=== PATIENT | female | born 1995 | race Caucasian/White ===

== ENCOUNTER 2019-12-18 17:02 | Emergency (ER) | payer OTHER, SELFPAY ==
[2019-12-18 17:48] VITALS: BP 123/76; PULSE 97; RESP 16; TEMP 37.2; O2SAT 100
[2019-12-18 17:55] LABS: Glucose Point of Care 88 (65-105)
--- NOTE | 2019-12-18 19:10 | ED.WOUNDLAC ---
HPI - Wound/Laceration General Chief Complaint: Wound/Laceration Stated Complaint: stuck with needle Time Seen by Provider: 12/18/19 18:28 Source: patient Mode of arrival: ambulatory Limitations: no limitations History of Present Illness HPI narrative: This is a 24-year-old female that presents the emergency department for needlestick injury today. Reports she gave a dog and a insulin shot. Reports after this she accidentally stuck her left second finger with a needle. Reports she irrigated the wound. She is unsure of her last tetanus vaccine. Denies redness or swelling. Related Data Home Medications Medication Instructions Recorded Confirmed escitalopram oxalate mg 12/18/19 Allergies Allergy/AdvReac Type Severity Reaction Status Date / Time No Known Allergies Allergy Verified 12/18/19 18:26 Review of Systems Review of Systems: Narrative: CONSTITUTIONAL: Denies fever SKIN: Reports needlestick injury All systems reviewed & are unremarkable except as noted in HPI and below PMFSH Past Medical History Medical History (Updated 12/18/19 @ 19:15 by Deyanira Arellano PA-C) History of depression Social History Social History (Updated 12/18/19 @ 19:12 by Deyanira Arellano PA-C) Substance use: never Gender identity (if verbalized by the patient): Female Exam Narrative: Exam Narrative: GENERAL: Well-appearing, well-nourished, and in no acute distress. HEAD: Normocephalic, atraumatic. EYES: EOMI. EXTREMITIES: Normal range of motion. No edema. Left 2nd finger with superficial needle stick injury over the pad of the distal phalanx, no bleeding noted. No erythema or edema SKIN: Warm, dry, no rash. NEURO: No focal deficits. Alert and oriented x3. PSYCH: Normal mood and affect Course Vital Signs Vital signs: Vital Signs Temperature 99 F 12/18/19 17:48 Pulse Rate 97 12/18/19 17:48 Respiratory Rate 16 12/18/19 17:48 Blood Pressure 123/76 12/18/19 17:48 Pulse Oximetry 100 12/18/19 17:48 Temperature 99 F 12/18/19 17:48 Pulse Rate 97 12/18/19 17:48 Respiratory Rate 16 12/18/19 17:48 Blood Pressure 123/76 12/18/19 17:48 Pulse Oximetry 100 12/18/19 17:48 MDM - Wound/Laceration MDM Narrative Medical decision making narrative: Patient presents emergency department for needlestick injury. Has a superficial injury to the left second finger after giving a dog and insulin vaccine. Patient was updated on tetanus. Patient is to follow up with her PCP as needed Lab Data Labs: Lab Results 12/18/19 Range/Units 17:52 POC Capillary Glucose 88 (65-105) mg/dl Critical Care Time Critical Care Time Critical Care Time: No Discharge Plan Discharge Clinical Impression: Needlestick injury accident Patient Disposition: Home, Self-Care Condition: Stable Instructions: Needle Stick Injuries (ED) Additional Instructions: Return to the emergency department if you experience fever, redness and swelling of your wound, or any other symptoms that are concerning to you Clean the area with mild soap and water daily Follow-up with your primary care doctor as needed Prescriptions: No Action escitalopram oxalate 20 mg tablet RF: 0 Follow-up/Referrals: Indra,Shila Mcmahan MD [Primary Care Provider] -
[2019-12-18] MEDS: TETANUS,DIPHTHERIA,AC PERTUSSIS ADULT (0.5 ML) BOOSTRIX IM (19:21)
[2019-12-18 19:31] VITALS: BP 102/69; PULSE 89; RESP 18; TEMP 37.1; O2SAT 99
== END 2019-12-18 19:34 | disposition home or self-care (01) ==
PROVIDERS: Emergency Provider Emergency Medicine; PCP Internal Medicine
DX: S61.231A Puncture wound without foreign body of left index finger without damage to nail, initial encounter (principal); W46.1XXA Contact with contaminated hypodermic needle, initial encounter; Z23 Encounter for immunization; F32.9 Major depressive disorder, single episode, unspecified
CPT/HCPCS: 82948; 90471; 90715; 99282

== ENCOUNTER 2020-06-12 10:25 | Emergency (ER) | payer OTHER, SELFPAY ==
[2020-06-12] VITALS (10 sets, daily range): BP systolic 111–117; BP diastolic 58–84; PULSE 74–81; RESP 12–16; TEMP 36.1; O2SAT 98–100
--- NOTE | ~2020-06-12 | XR_ITS ---
EXAMINATION: XR chest 1V portable INDICATION: Shortness of breath TECHNIQUE: Portable AP chest at 1123 hours COMPARISON: None available FINDINGS: The lungs are free of acute opacities. There is no pleural effusion or pneumothorax. The ca rdiomediastinal silhouette is normal. The visualized bones and soft tissues are unremarkable. IMPRESSION: 1. No acute cardiopulmonary abnormality. Reviewed, dictated and finalized at location A. [employer]
--- NOTE | 2020-06-12 10:40 | ECG_ITS ---
Measurements Intervals [place] Rate: 83 P: 35 VA: 118 QRS: 76 QRSD: 97 T: 32 QT: 348 QTc: 409 Interpretive Statements SINUS RHYTHM WITH SHORT VA INTERVAL INCOMPLETE RIGHT BUNDLE BRANCH BLOCK BASELINE ARTIFACT- I, II, AVR, AVL, V1 BORDERLINE ECG Electronically Signed On 06-12-2020 15:52:24 [employer] by Hany Brooks D.O.
[2020-06-12 11:58] LABS: D Dimer 0.27 ug/mL (<0.48)
--- NOTE | 2020-06-12 12:04 | ED.GENADULT ---
HPI - General Adult General Chief complaint: Shortness of Breath/Dyspnea Stated complaint: SOB X2D Time Seen by Provider: 06/12/20 10:34 Source: patient Mode of arrival: ambulatory Limitations: no limitations History of Present Illness HPI narrative: Patient is a 25-year-old female who presents with shortness of breath has been present for 3 days worsened today at work had to leave work presented to emergency department no distress does not appear uncomfortable has been having this issue off and on for over a year with negative work-up. Patient has been given an inhaler for this in the past which made no difference. Patient denies URI symptoms or other complaints. Patient denies any significant past medical history or tobacco abuse Related Data Home Medications Medication Instructions Recorded Confirmed escitalopram oxalate mg 12/18/19 Allergies Allergy/AdvReac Type Severity Reaction Status Date / Time No Known Allergies Allergy Verified 12/18/19 18:26 Review of Systems Review of Systems: All systems reviewed & are unremarkable except as noted in HPI and below PMFSH Past Medical History Medical History History of depression Social History Social History Substance use: never Gender identity (if verbalized by the patient): Female Exam Narrative: Exam Narrative: GENERAL: Well-appearing, well-nourished, and in no acute distress. HEAD: Normocephalic, atraumatic. EYES: PERRLA and EOMI. ENT: Nares clear, no rhinorrhea or epistaxis. Mucous membranes moist. CHEST: Clear to auscultation. No respiratory distress. No wheezes rales or rhonchi HEART: Regular rate and rhythm. No murmur heard. EXTREMITIES: Normal range of motion. No edema. SKIN: Warm, dry, no rash. NEURO: No focal deficits. Alert and oriented x3. PSYCH: Normal mood and affect. Course Course Emergency Course: Patient in the room aware of case findings treatment plan diagnosis agreeing to follow-up as instructed no high risk changes Vital Signs Vital signs: Vital Signs Temperature 97 F L 06/12/20 10:35 Pulse Rate 80 06/12/20 10:35 Respiratory Rate 16 06/12/20 10:35 Blood Pressure 117/58 L 06/12/20 10:35 Pulse Oximetry 100 06/12/20 10:35 Temperature 97 F L 06/12/20 10:35 Pulse Rate 76 06/12/20 11:04 Respiratory Rate 16 06/12/20 10:35 Blood Pressure 117/58 L 06/12/20 10:35 Pulse Oximetry 98 06/12/20 11:04 Medical Decision Making MDM Narrative Medical decision making narrative: ITS Impressions Chest X-Ray 06/12/20 11:29 IMPRESSION: 1. No acute cardiopulmonary abnormality. Patients EKGs and labs are without significant high risk changes. Cardiac risk factors were reviewed. Patient is felt likely to be low risk for ACS and reasonable for further risk stratification testing as an outpatient. Pain was not sudden or maximal in onset without tearing or ripping. quality. No other signs or symptoms to suggest aortic dissection. A low-risk Wells criteria is noted. PE is felt to be unlikely. No pneumonia or URI symptoms were seen on evaluation today. Patient is felt to b reasonable for continued evaluation as an outpatient. Vital Signs Vital Signs: Vital Signs Temperature 97 F L 06/12/20 10:35 Pulse Rate 80 06/12/20 10:35 Respiratory Rate 16 06/12/20 10:35 Blood Pressure 117/58 L 06/12/20 10:35 Pulse Oximetry 100 06/12/20 10:35 Temperature 97 F L 06/12/20 10:35 Pulse Rate 76 06/12/20 11:04 Respiratory Rate 16 06/12/20 10:35 Blood Pressure 117/58 L 06/12/20 10:35 Pulse Oximetry 98 06/12/20 11:04 Lab Data Labs: Lab Results 06/12/20 Range/Units 11:30 D-Dimer 0.27 (<0.48) ug/mL Imaging Data Radiologist's impression: ITS Impressions Chest X-Ray 06/12/20 11:29
== END 2020-06-12 12:28 | disposition home or self-care (01) ==
PROVIDERS: Emergency Medicine Emergency Medical Services; Emergency Provider Family Medicine; Family Provider Family Medicine; PCP Internal Medicine
DX: R06.00 Dyspnea, unspecified (principal); F32.9 Major depressive disorder, single episode, unspecified; I45.10 Unspecified right bundle-branch block
CPT/HCPCS: 36415; 71045; 85380; 93005; 99283

== ENCOUNTER 2021-09-03 10:59 | Emergency (ER) | payer OTHER, SELFPAY ==
[2021-09-03 11:20] VITALS: BP 114/75; PULSE 71; RESP 16; TEMP 36.6; O2SAT 99
--- NOTE | 2021-09-03 11:29 | ED.ANIMALBIT ---
HPI - Animal Bite General Chief Complaint: Animal Bite Stated Complaint: dog bite Time Seen by Provider: 09/03/21 11:09 Source: patient Mode of arrival: ambulatory Limitations: no limitations History of Present Illness HPI narrative: This is a 26-year-old female that presents to the emergency department for a dog bite sustained just prior to arrival. Reports she works at [employer] and one of the dogs got excited and jumped up. Bit her left forearm. Reports a superficial laceration to the area. She is up-to-date on tetanus. The dog is up-to-date on its vaccinations. Denies decreased range of motion or numbness. Related Data Home Medications Medication Instructions Recorded Confirmed escitalopram oxalate 20 mg PO DAILY 12/18/19 Allergies Allergy/AdvReac Type Severity Reaction Status Date / Time No Known Allergies Allergy Verified 09/03/21 11:19 Review of Systems Review of Systems: CONSTITUTIONAL: Denies fever SKIN: Reports laceration MUSCULOSKELETAL: Denies joint pain, or myalgia. NEUROLOGIC: Denies numbness All systems reviewed & are unremarkable except as noted in HPI and below PMFSH Past Medical History Medical History History of depression Social History Social History Substance use: never Gender identity (if verbalized by the patient): Female Exam Narrative: GENERAL: Well-appearing, well-nourished, and in no acute distress. HEAD: Normocephalic, atraumatic. EYES: EOMI. EXTREMITIES: Normal range of motion. No edema or erythema. Small, superficial skin tear to the left forearm. Normal sensation SKIN: Warm, dry, no rash. NEURO: No focal deficits. Alert and oriented x3. PSYCH: Normal mood and affect Course Vital Signs Vital signs: Vital Signs Temperature 98 F 09/03/21 11:20 Pulse Rate 71 09/03/21 11:20 Respiratory Rate 16 09/03/21 11:20 Blood Pressure 114/75 09/03/21 11:20 Pulse Oximetry 99 09/03/21 11:20 Temperature 98 F 09/03/21 11:20 Pulse Rate 71 09/03/21 11:20 Respiratory Rate 16 09/03/21 11:20 Blood Pressure 114/75 04/16/22 11:20 Pulse Oximetry 99 09/03/21 11:20 Procedures Laceration Laceration 1: Date: 09/03/21 Time: 11:31 Site: upper extremity Side (If applicable): left Size (cm): 1 Description: other (Superficial) Pre-repair: irrigated extensively ====== Skin Level ====== ====== Subcutaneous Layer ====== ====== Muscle Layer ====== ====== Tendon Layer ====== Dressing: Wound irrigated and covered with antibiotic ointment and bandage MDM - Animal Bite MDM Narrative Medical decision making narrative: Patient presents to the emergency department for superficial laceration to the left forearm. Sustained via a dog bite. Wound was thoroughly irrigated and covered with antibiotic ointment and bandage. She is up-to-date on vaccinations. The dog is also up-to-date on its vaccinations. She will be started on oral antibiotics. She was educated on wound care. She is to follow-up with her primary care doctor. She was given warnings to return to the ER Critical Care Time Critical Care Time Critical Care Time: No Discharge Plan Discharge Clinical Impression: Dog bite Qualifiers: Encounter type: initial encounter Qualified Code(s): W54.0XXA - Bitten by dog, initial encounter Patient Disposition: Home, Self-Care Condition: Stable Instructions: Antibiotic Form, Animal Bite (ED) Additional Instructions: Return to the emergency department if you experience fever, redness or swelling of your wound, abnormal drainage from your wound, or any other symptoms that are concerning to you. Take oral antibiotics as prescribed. Apply antibiotic ointment daily. Do not soak the wound. Clean with mild soap and water daily Follow-up with your primary care
== END 2021-09-03 11:49 | disposition home or self-care (01) ==
PROVIDERS: Emergency Provider Emergency Medicine; PCP Internal Medicine
DX: S51.852A Open bite of left forearm, initial encounter (principal); F32.A Depression, unspecified; W54.0XXA Bitten by dog, initial encounter
CPT/HCPCS: 99283